=== PATIENT | female | born 1960 | race African-American/Black ===

== ENCOUNTER 2018-09-06 06:08 | Day surgery (SDC) | payer OTHER ==
[2018-09-05 17:54] VITALS: BMI 26.4
[2018-09-06] MEDS ORDERED: PROMETHAZINE HCL 25 MG/1 ML VIAL IVPB PRN (08:19)
[2018-09-06] MEDS ORDERED: ONDANSETRON 4 MG/2 ML VIAL IVPUSH PRN (08:19)
[2018-09-06] MEDS ORDERED: LABETALOL HCL 5 MG/1 ML (100MG/20 ML VIAL) IVPUSH ONE (08:20)
[2018-09-06] MEDS ORDERED: LACTATED RINGERS SOLUTION 1,000 ML IV SCH (08:30)
[2018-09-06] MEDS ORDERED: GLYCOPYRROLATE 0.2 MG/1 ML VIAL IM PRN (09:15)
[2018-09-06 15:33] VITALS: BP 170/80; PULSE 58; TEMP 97.5
--- NOTE | 2018-09-07 09:05 | OP ---
DATE OF OPERATION: 09/06/2018 PREOPERATIVE DIAGNOSIS: Postmenopausal bleeding. POSTOPERATIVE DIAGNOSIS: Postmenopausal bleeding. PROCEDURE: Dilatation and curettage, hysteroscopy. SURGEON: Nhan Etienne DO ANESTHESIA: General. INTRAVENOUS FLUID: 300 mL. DISTENTION MEDIA: Distention media in 300 mL. Distention media out 250 mL. Distention media deficit 50 mL. ESTIMATED BLOOD LOSS: 50 mL. SPECIMEN: Endometrial lining. COMPLICATIONS: None. FINDINGS: Examination under anesthesia revealed uterus to be 6 to 8 weeks' size, normal contour, normal bilateral adnexa. Hysteroscopy revealed uterine cavity with bilateral ostia appearing normal. Risks, benefits and alternatives discussed with the patient patient verbalizes understanding and agreed. Medical clearance obtained. PROCEDURE: The patient was taken to the operating room where general anesthesia was administered without difficulty. She was placed in the dorsal lithotomy position, prepped and draped in the usual sterile fashion. A weighted speculum was inserted to the posterior aspect of the vagina. A single-tooth tenaculum was used to grasp the anterior lip of the cervix. The uterus was carefully sounded to 6 cm. The cervical os was sequentially dilated to accommodate the hysteroscope. Subsequently, the hysteroscope was introduced under direct visualization and distended with normal saline. The aforementioned findings were noted. The hysteroscope was then withdrawn. The cervix was further dilated to accommodate the sharp curettage. The uterus was curetted in a clockwise fashion until a gritty-like sensation was obtained in all aspects of the uterus. Deep endometrial scrapings were sent to Pathology. Tenaculum was removed from the cervix with excellent hemostasis noted on puncture site. The patient tolerated procedure well. Instrument and sponge counts were correct x2. The patient was awakened from general anesthesia and taken to the recovery room in stable condition. The patient to be discharged home following recovering from anesthesia and meeting all criteria for discharge. She was given instructions regarding postop followup in [address] Etienne. Nhan Etienne DO [id number]
--- NOTE | 2018-09-09 15:29 | PATH ---
Surgical Pathology Report Patient Name: LINN RODRIGUEZ [facility]. Rec. #: [id number] /Age/Gender: 1960 (Age: 58) / F Account: [id number] Location: [facility] SURGICAL Taken: 09/06/2018 Received: 09/06/2018 Reported: 09/09/2018 Physicians: Nhan Etienne DO Specimen(s) Received A: ENDOMETRIAL CURETTINGS AND POLYP B: ENDOCERVICAL CURETTINGS Clinical History Postmenopausal bleeding Final Diagnosis A. ENDOMETRIAL CURETTINGS AND POLYP, DILATION AND CURETTAGE: STRIPS OF ENDOMETRIAL GLANDS CONSISTENT WITH ATROPHIC ENDOMETRIUM. FRAGMENTS OF BENIGN CERVICAL TISSUE. B. ENDOCERVICAL CURETTINGS, DILATION AND CURETTAGE: SCANT EPITHELIAL CELLS ADMIXED WITH MUCUS. Electronically Signed Pooja Powers M.D. Gross Description A. Received in formalin, labeled "endometrial curettings and polyp" are multiple otto, irregular portions of soft tissue measuring 1.0 x 1.0 x 0.1 cm in aggregate. The specimens are submitted in toto in one cassette. B. Received in formalin, labeled "endocervical curettings" are scanty mucoid tissue measuring 0.2 x 0.2 x 0.1 cm in aggregate. The specimens are submitted in toto in 1 cassette. CHEYANNE/09/06/2018 zach/09/06/2018
== END 2018-09-06 11:35 | disposition home or self-care (01) ==
LOC: JASU-SURG 06:08
PROVIDERS: ATTEND Obstetrics & Gynecology
PROC: 0UDB7ZX Extraction of Endometrium, Via Natural or Artificial Opening, Diagnostic (ICD-10-PCS; principal; 2018-09-06 07:30)
PROC: 0UJD8ZZ Inspection of Uterus and Cervix, Via Natural or Artificial Opening Endoscopic (ICD-10-PCS; 2018-09-06 07:30)
DX: N95.0 Postmenopausal bleeding (principal)
CPT/HCPCS: 88305-TC; 94760